=== PATIENT | female | born 1955 | race Caucasian/White ===

== ENCOUNTER 2024-01-28 14:41 | Outpatient (CLI) | payer MEDICARE | END 2024-01-28 14:42 | disposition home or self-care (01) | LOC: BICMAMMO 14:41 | PROVIDERS: ATTEND Physician Assistant | DX: Z78.0 Asymptomatic menopausal state (principal); M85.89 Other specified disorders of bone density and structure, multiple sites | CPT/HCPCS: 77080 ==